=== PATIENT | male | born 1960 | race African-American/Black ===

== ENCOUNTER → 2018-04-20 15:15 | Outpatient (CLI) | payer MEDICAID | END | disposition home or self-care (01) | LOC: D.US 15:00 | DX: R10.2 Pelvic and perineal pain (principal) ==

== ENCOUNTER → 2018-12-04 08:05 | Outpatient (CLI) | payer MEDICAID | END | disposition home or self-care (01) | LOC: D.US 11-24 10:30 | PROVIDERS: ATTEND Emergency Medicine | DX: R16.0 Hepatomegaly, not elsewhere classified (principal) ==

== ENCOUNTER → 2019-01-21 09:48 | Outpatient (CLI) | payer MEDICAID | END | disposition home or self-care (01) | LOC: D.LAB 09:48 | PROVIDERS: ATTEND Emergency Medicine | DX: R07.81 Pleurodynia (principal); F17.200 Nicotine dependence, unspecified, uncomplicated ==

== ENCOUNTER → 2019-11-01 21:25 | Outpatient (CLI) | payer MEDICAID ==
[2019-11-01 22:10] LABS: UDS - AMPHET NEGATIVE QUAL (NEGATIVE); UDS - BARB NEGATIVE QUAL (NEGATIVE); UDS - BENZO NEGATIVE QUAL (NEGATIVE); UDS - COCAINE POSITIVE QUAL (NEGATIVE); UDS - OPIATE NEGATIVE QUAL (NEGATIVE); UDS - PCP NEGATIVE QUAL (NEGATIVE); UDS - THC POSITIVE QUAL (NEGATIVE)
[2019-11-01 22:14] LABS: HEMATOCRIT 42.2 % (42.0-54.0); HEMOGLOBIN 13.5 g/dL (13.5-17.5); MCH 30.4 pg (26.0-34.0); MEAN PLATELET VOLUME 10.5 fL (7.4-10.4); RBC 4.44 10x6/uL (4.20-6.10); RDW 14.8 % (11.5-14.5); WBC 9.8 10x3/uL (4.8-10.8)
[2019-11-01 22:17] LABS: ALBUMIN 4.2 g/dL (3.4-5.0); BILIRUBIN - TOTAL 0.59 mg/dL (0.2-1.3); CALCIUM 9.6 mg/dL (8.5-10.1); CARBON DIOXIDE 25.5 mmol/L (21.0-32.0); CHOL - HDL RATIO 1.7 ratio (2.3-4.9); CREATININE - SERUM 1.6 mg/dL (0.6-1.3); LDL-HDL RATIO 0.6 ratio (1.5-3.5); POTASSIUM - SERUM 4.5 mmol/L (3.5-5.1); PROTEIN - SERUM 8.1 g/dL (6.4-8.2)
[2019-11-01 22:30] LABS: PLATELET COUNT 293 10x3/uL (130-400)
[2019-11-01 22:54] LABS: LYMPHOCYTES 33 % (15-50); MONOCYTES 4 % (2-11); NEUTROPHILS 63 % (40-80); PLATELET ESTIMATE NORMAL
== END | disposition home or self-care (01) ==
LOC: D.LABREF 21:25
PROVIDERS: ATTEND Legal Medicine
DX: I10 Essential (primary) hypertension (principal); E78.2 Mixed hyperlipidemia